=== PATIENT | male | born 1960 | race American Indian/Alaskan Native ===

== ENCOUNTER 2016-08-31 23:06 | Emergency (ER) | payer OTHER ==
[2016-08-31 23:07] VITALS: BMI 26.1
[2016-08-31 23:17] VITALS: BP 150/94; PULSE 90; RESP 14; TEMP 97.7; O2SAT 98
--- NOTE | 2016-08-31 23:37 | C.PDOC ---
History Of Present Illness 56 year old patient presents to the ED complaining of body aches, watery eyes and runny nose since yesterday. Patient notes he used a nasal spray with minimal relief. Patient notes he had similar symptoms last year. Patient denies fever, difficulty breathing, chest pain, nausea, vomiting, diarrhea. (-) incresae thirst or polyuria. Time Seen by Provider: 08/31/16 23:23 Chief Complaint (Nursing): Flu-like Symptoms History Per: Patient History/Exam Limitations: no limitations Onset/Duration Of Symptoms: Days (yesterday) Current Symptoms Are (Timing): Still Present Location Of Pain: Other (body aches) Sick Contacts (Context): None Severity: Mild Pain Scale Rating Of: 3 Recent travel outside of the [place]: No Past Medical History Reviewed: Historical Data, Nursing Documentation, Vital Signs Vital Signs: Last Vital Signs Temp 97.7 F 08/31/16 23:15 Pulse 90 08/31/16 23:15 Resp 14 08/31/16 23:15 BP 150/94 H 08/31/16 23:15 Pulse Ox 98 09/01/16 02:58 - Medical History PMH: HTN Family History: States: Unknown Family Hx - Social History Hx Tobacco Use: No Hx Alcohol Use: No Hx Substance Use: No - Immunization History Hx Tetanus Toxoid Vaccination: No Hx Influenza Vaccination: No Hx Pneumococcal Vaccination: No Review Of Systems Except As Marked, All Systems Reviewed And Found Negative. Constitutional: Positive for: Other (body aches). Negative for: Fever ENT: Positive for: Nose Discharge Cardiovascular: Negative for: Chest Pain Respiratory: Negative for: Shortness of Breath Gastrointestinal: Negative for: Nausea, Vomiting, Diarrhea Physical Exam - Physical Exam Appears: Non-toxic, No Acute Distress Skin: Warm, Dry Head: Atraumatic, Normacephalic Eye(s): bilateral: Normal Inspection, PERRL, EOMI Ear(s): Bilateral: Normal Nose: No Septal Hematoma, Other (nasal congestion with some swelling of the turbinates) Oral Mucosa: Moist Throat: Normal, No Erythema, No Exudate Neck: Normal ROM, Supple Lymphatic: Normal Exam Chest: Symmetrical Cardiovascular: Rhythm Regular Respiratory: Normal Breath Sounds, No Accessory Muscle Use, No Rales, No Rhonchi , No Wheezing Gastrointestinal/Abdominal: Soft, No Tenderness Back: Normal Inspection Extremity: Normal ROM Neurological/Psych: Oriented x3 Gait: Steady ED Course And Treatment O2 Sat by Pulse Oximetry: 98 (room air) Pulse Ox Interpretation: Normal Progress Note: Patient is resting comfortably, and is in no acute distress. Patient was instructed to follow up with physician/clinic for further evaluation. Return if symptoms worsen. Disposition - Disposition Disposition: HOME/ ROUTINE Disposition Time: 23:35 Condition: STABLE Additional Instructions: Follow up with primary medical doctor in 1-3 days without fail for further evaluation. Take medications as prescribed. Return to the emergency department at any time if symptoms persist or worsen. 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 - Scribe Statement The provider has reviewed the documentation as recorded by the Scribe Saida Owens All medical record entries made by the Scribe were at my direction and personally dictated by me. I have reviewed the chart and agree that the record accurately reflects my personal performance of the history, physical exam, medical decision making, and the department course for this patient. I have also personally directed, reviewed, and agree with the discharge instructions and disposition.
== END 2016-08-31 23:55 | disposition home or self-care (01) ==
LOC: C.ER 23:06
DX: B34.9 Viral infection, unspecified (principal)

== ENCOUNTER 2016-10-19 | Emergency (ER) | payer OTHER ==
[2016-10-19 00:01] VITALS: BMI 26.1
[2016-10-19 00:07] VITALS: PULSE 70; RESP 20; TEMP 97.9; O2SAT 100
[2016-10-19] MEDS ORDERED: Naproxen 550 mg Tab PO ONE (00:28)
--- NOTE | 2016-10-19 00:28 | C.PDOC ---
History Of Present Illness 56 year old male who presents to the ER with a complaint of lower back pain. 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 Patient states he twisted his back while attempting to break the fall; he notes taking naproxen at home with minimal relief and has recurring pain with movement. Denies weakness, numbness, or incontinence. Time Seen by Provider: 10/19/16 00:21 Chief Complaint (Nursing): Back Pain History Per: Patient History/Exam Limitations: no limitations Onset/Duration Of Symptoms: Days (7) Current Symptoms Are (Timing): Still Present Quality Of Discomfort: Unable To Describe Previous Symptoms: None Associated Symptoms: None. denies: Incontinence, New Weakness, New Numbness Exacerbating Factor(s): Movement Recent travel outside of the [place]: No Past Medical History Reviewed: Historical Data, Nursing Documentation, Vital Signs Vital Signs: Last Vital Signs Temp 97.9 F 10/19/16 00:04 Pulse 70 10/19/16 00:04 Resp 20 10/19/16 00:04 BP 150/80 10/19/16 00:31 Pulse Ox 100 10/19/16 03:04 - Medical History PMH: HTN Surgical History: No Surg Hx Family History: States: Unknown Family Hx - Social History Hx Tobacco Use: No Hx Alcohol Use: No Hx Substance Use: No - Immunization History Hx Tetanus Toxoid Vaccination: No Hx Influenza Vaccination: No Hx Pneumococcal Vaccination: No Review Of Systems Genitourinary: Negative for: Incontinence Musculoskeletal: Positive for: Back Pain Neurological: Negative for: Weakness, Numbness Physical Exam - Physical Exam Appears: Non-toxic Skin: Normal Color, Warm, Dry Head: Atraumatic, Normacephalic Oral Mucosa: Moist Back: No Vertebral Tenderness, Paraspinal Tenderness (Lumbar), Straight Leg Raising (Negative) Extremity: Normal ROM (x4), No Tenderness Neurological/Psych: Oriented x3, Normal Speech, Normal Cognition ED Course And Treatment O2 Sat by Pulse Oximetry: 100 (Room air) Pulse Ox Interpretation: Normal Progress Note: Naproxen administered. Patient is resting comfortably, is no longer having back pain, no fever, no bony tenderness, no numbness, no weakness , or abdominal pain. Patient is ambulatory in the emergency department with no signs of discomfort. Patient was advised to follow up with their physician in 1- 2 days. Disposition Counseled Patient/Family Regarding: Diagnosis, Need For Followup, Rx Given - Disposition Referrals: [facility] at [facility] [Outside] Disposition: HOME/ ROUTINE Disposition Time: 00:26 Condition: STABLE Additional Instructions: Take meds as directed Take flexeril at bedtime only Return to ER if worse Prescriptions: Cyclobenzaprine [Cyclobenzaprine HCl] 10 mg PO HS #10 tab Instructions: Muscle Strain (ED) - Clinical Impression Clinical Impression: Low back strain - Scribe Statement The provider has reviewed the documentation as recorded by the Scribderick Villagran All medical record entries made by the Hirenibderick were at my direction and personally dictated by me. I have reviewed the chart and agree that the record accurately reflects my personal performance of the history, physical exam, medical decision making, and the department course for this patient. I have also personally directed, reviewed, and agree with the discharge instructions and disposition.
[2016-10-19] MEDS ORDERED: Naproxen 550 mg Tab PO STA (00:29)
[2016-10-19 00:32] VITALS: BP 150/80
== END 2016-10-19 00:32 | disposition home or self-care (01) ==
LOC: C.ER
DX: S39.012A Strain of muscle, fascia and tendon of lower back, initial encounter (principal); W01.0XXA Fall on same level from slipping, tripping and stumbling without subsequent striking against object, initial encounter; Y92.239 Unspecified place in hospital as the place of occurrence of the external cause; Y99.0 Civilian activity done for income or pay

== ENCOUNTER 2017-03-09 16:55 | Emergency (ER) | payer OTHER ==
[2017-03-09 17:02] VITALS: BMI 25.0
[2017-03-09 17:04] VITALS: TEMP 98; O2SAT 100
[2017-03-09] MEDS ORDERED: Naproxen 550 mg Tab PO STA (17:57)
[2017-03-09] MEDS ORDERED: Amoxicillin-Clav 875-125 mg Tab PO STA (17:57)
[2017-03-09] MEDS ORDERED: Amoxicillin-Clav 875-125 mg Tab PO ONE (18:03)
[2017-03-09] MEDS ORDERED: Naproxen 550 mg Tab PO ONE (18:04)
--- NOTE | 2017-03-09 18:13 | C.PDOC ---
Time Seen by Provider: 03/09/17 17:26 Chief Complaint (Nursing): Headache History Per: Patient Onset/Duration Of Symptoms: Days (6), Waxing/Waning, Gradual Current Symptoms Are (Timing): Still Present Severity: Moderate Front/Back Head: 1 - pain Quality: "Pain" Associated Symptoms: denies: Photophobia, Blurred Vision, Nausea, Vomiting, Extremity Weakness Additional History Per: Prior Records Past Medical History Reviewed: Historical Data, Nursing Documentation, Vital Signs Vital Signs: Last Vital Signs Temp 98.0 F 03/09/17 17:02 Pulse 59 L 03/09/17 18:35 Resp 18 03/09/17 18:35 BP 159/86 H 03/09/17 18:35 Pulse Ox 100 03/09/17 18:35 - Medical History PMH: HTN (but not on any medication) Family History: States: Unknown Family Hx - Social History Hx Tobacco Use: No Hx Alcohol Use: No Hx Substance Use: No - Immunization History Hx Tetanus Toxoid Vaccination: No Hx Influenza Vaccination: No Hx Pneumococcal Vaccination: No Review Of Systems Except As Marked, All Systems Reviewed And Found Negative. Constitutional: Negative for: Fever, Weakness Eyes: Negative for: Vision Change, Eyelid Inflammation Cardiovascular: Negative for: Chest Pain Respiratory: Negative for: Shortness of Breath Gastrointestinal: Negative for: Nausea, Vomiting, Abdominal Pain Musculoskeletal: Negative for: Neck Pain Skin: Negative for: Rash Neurological: Positive for: Headache. Negative for: Weakness, Numbness, Incoordination, Change in Speech, Confusion, Seizures, Altered Mental Status, Dizziness Physical Exam - Physical Exam Appears: Non-toxic, No Acute Distress Skin: Normal Color, Warm, Dry, No Rash Head: Atraumatic, Normacephalic Eye(s): bilateral: Normal Inspection, PERRL, EOMI Ear(s): Bilateral: Normal Oral Mucosa: Moist, No Drooling, No Trismus Throat: Normal Neck: Normal ROM, Supple Lymphatic: No Adenopathy Cardiovascular: Rhythm Regular Respiratory: Normal Breath Sounds, No Accessory Muscle Use Gastrointestinal/Abdominal: Soft, No Tenderness Extremity: Normal ROM Neurological/Psych: Oriented x3, Normal Speech, Normal Cognition, Normal Cranial Nerves, No Cerebellar Signs, Normal Motor, Normal Sensation ED Course And Treatment O2 Sat by Pulse Oximetry: 100 Pulse Ox Interpretation: Normal Reassessment Condition: Improved Disposition Counseled Patient/Family Regarding: Studies Performed, Diagnosis, Need For Followup, Rx Given - Disposition Disposition: HOME/ ROUTINE Disposition Time: 18:37 Condition: STABLE Additional Instructions: Follow up with your doctor within 1 week for further evaluation and treatment. Return to the ER if you develop fever, vomiting, weakness, numbness, worsening of symptoms or if you have any other concerns. Prescriptions: Amoxicillin/Clavulanate [Augmentin 875 MG-125 MG] 1 tab PO BID #14 tab Fluticasone Nasal [Flonase] 2 spr NS DAILY #1 bottle hydroCHLOROthiazide [Microzide] 12.5 mg PO DAILY #30 cap Naproxen [Naprosyn] 1 tab PO BID PRN #20 tab PRN Reason: Pain Instructions: Sinusitis (ED), Hypertension (ED) Forms: [employer] (Venezuelan) - Clinical Impression Clinical Impression: Frontal headache, Sinusitis, Hypertension
[2017-03-09 18:36] VITALS: BP 159/86; PULSE 59; RESP 18
== END 2017-03-09 18:46 | disposition home or self-care (01) ==
LOC: C.ER 16:55
DX: R51 Headache (principal); J32.9 Chronic sinusitis, unspecified; I10 Essential (primary) hypertension

== ENCOUNTER 2017-08-10 06:02 | Emergency (ER) | payer OTHER ==
[2017-08-10 06:02] VITALS: BMI 25.0
[2017-08-10 06:15] VITALS: RESP 20
--- NOTE | 2017-08-10 06:25 | C.PDOC ---
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 Patient took some advil with some resolution of the headache, however, this morning the headache recurred. Patient is concerned his blood pressure might be elevated since he is noncompliant with medications and prefers to control his blood pressure with diet. Denies chest pain, SOB, neck pain, change in vision, dizziness, weakness Time Seen by Provider: 08/10/17 06:24 Chief Complaint (Nursing): Headache History Per: Patient History/Exam Limitations: no limitations Onset/Duration Of Symptoms: Hrs, Intermittent Episodes Current Symptoms Are (Timing): Still Present Preceeding Symptoms: None Associated Symptoms: denies: Photophobia, Blurred Vision, Nausea, Vomiting, Extremity Weakness Recent travel outside of the [place]: No Past Medical History Reviewed: Historical Data, Nursing Documentation, Vital Signs Vital Signs: Last Vital Signs Temp 98 F 08/10/17 06:10 Pulse 65 08/10/17 06:10 Resp 20 08/10/17 06:10 BP 149/82 08/10/17 06:49 Pulse Ox 98 08/10/17 06:51 - Medical History PMH: HTN (but not on any medication) Family History: States: Unknown Family Hx - Social History Hx Tobacco Use: No Hx Alcohol Use: Yes Hx Substance Use: No - Immunization History Hx Tetanus Toxoid Vaccination: No Hx Influenza Vaccination: No Hx Pneumococcal Vaccination: No Review Of Systems Eyes: Negative for: Vision Change Cardiovascular: Negative for: Chest Pain Respiratory: Negative for: Shortness of Breath Musculoskeletal: Negative for: Neck Pain Neurological: Positive for: Headache. Negative for: Dizziness Physical Exam - Physical Exam Appears: Non-toxic Skin: Normal Color, Warm, Dry Head: Atraumatic, Normacephalic Eye(s): bilateral: Normal Inspection, PERRL, EOMI Oral Mucosa: Moist Chest: Symmetrical, No Tenderness Cardiovascular: Rhythm Regular Respiratory: Normal Breath Sounds, No Rales, No Rhonchi, No Wheezing Neurological/Psych: Oriented x3, Normal Speech ED Course And Treatment O2 Sat by Pulse Oximetry: 98 (Room air) Pulse Ox Interpretation: Normal Progress Note: Patient's pain is now a 6/10, motrin PO given. Patient is hypertensive but otherwise stable. On reevaluation, patient is resting comfortably in the ER in no acute distress or pain, will discharge home with instructions to follow up with PMD or return if symptoms worsen. Patient understand and agrees with plan. 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 - Scribe Statement The provider has reviewed the documentation as recorded by the Scribderick Villagran All medical record entries made by the Hirenibderick were at my direction and personally dictated by me. I have reviewed the chart and agree that the record accurately reflects my personal performance of the history, physical exam, medical decision making, and the department course for this patient. I have also personally directed, reviewed, and agree with the discharge instructions and disposition.
[2017-08-10 07:15] VITALS: BP 149/52; PULSE 63; TEMP 98.4; O2SAT 100
== END 2017-08-10 07:19 | disposition home or self-care (01) ==
LOC: C.ER 06:02
DX: I10 Essential (primary) hypertension (principal); R51 Headache; Z91.14 Patient's other noncompliance with medication regimen

== ENCOUNTER 2018-01-11 19:20 | Emergency (ER) | payer BC, OTHER ==
[2018-01-11 19:21] VITALS: BMI 25.0
[2018-01-11 19:38] VITALS: BP 176/96; PULSE 75; RESP 16; TEMP 98.3; O2SAT 98
--- NOTE | 2018-01-11 20:18 | C.PDOC ---
History Of Present Illness 57 year old male presents to the ED complaining of frontal sinus pain/pressure and headache that began 4 days ago. Also notes lots of mucus and congestion. Otherwise he denies any fever, chills, or other complaints. Time Seen by Provider: 01/11/18 19:48 Chief Complaint (Nursing): ENT Problem History Per: Patient History/Exam Limitations: no limitations Onset/Duration Of Symptoms: Days Current Symptoms Are (Timing): Still Present Location Of Pain: Sinus/es Sick Contacts (Context): None Past Medical History Reviewed: Historical Data, Nursing Documentation, Vital Signs Vital Signs: Last Vital Signs Temp 98.3 F 01/11/18 19:31 Pulse 75 01/11/18 19:31 Resp 16 01/11/18 19:31 BP 176/96 H 01/11/18 19:31 Pulse Ox 98 01/11/18 19:31 - Medical History PMH: HTN (but not on any medication) Denies: Chronic Kidney Disease Family History: States: Unknown Family Hx - Social History Hx Tobacco Use: No Hx Alcohol Use: Yes Hx Substance Use: No - Immunization History Hx Tetanus Toxoid Vaccination: No Hx Influenza Vaccination: Yes Hx Pneumococcal Vaccination: No Review Of Systems Except As Marked, All Systems Reviewed And Found Negative. Constitutional: Negative for: Fever, Chills Eyes: Negative for: Vision Change ENT: Positive for: Nose Discharge, Nose Congestion, Other (Sinus pain/pressure) Respiratory: Negative for: Shortness of Breath, Wheezing Gastrointestinal: Negative for: Nausea, Vomiting Neurological: Positive for: Headache. Negative for: Dizziness Physical Exam - Physical Exam Appears: Well, Non-toxic, No Acute Distress Skin: Warm, Dry, No Rash Head: Normacephalic, Tenderness (on palpation to frontal sinus) Eye(s): bilateral: Normal Inspection, PERRL, EOMI Oral Mucosa: Moist Neck: Normal ROM Chest: Symmetrical Respiratory: No Accessory Muscle Use, Other (Speaking in full sentences) Extremity: Bilateral: Atraumatic, Normal Color And Temperature, Normal ROM Neurological/Psych: Oriented x3, Normal Speech Gait: Steady ED Course And Treatment O2 Sat by Pulse Oximetry: 98 (RA) Pulse Ox Interpretation: Normal Medical Decision Making Medical Decision Making: Impression: Sinusitis Initial Plan: Counseled patient regarding diagnosis and treatment plan. Patient remained afebrile alert and oriented with stable vital signs during ER evaluation. Patient feels comfortable going home and will be discharged. Provided with prescription for antibiotics. Patient given follow up instructions. Instructed to return to ER if symptoms worsen or new symptoms arise. Disposition Counseled Patient/Family Regarding: Diagnosis, Need For Followup, Rx Given - Disposition Referrals: [facility] [Outside] [facility] [Outside] Disposition: HOME/ ROUTINE Disposition Time: 20:18 Condition: STABLE Additional Instructions: May use cool mist humidifier or vaporizer in room. Try taking over the counter antihistamine (Claritin, Betsy, Zyrtec), Decongestant or Cough medicine (Mucinex). Follow up with your primary medical doctor or clinic in 1 week for further evaluation. 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 - Scribe Statement The provider has reviewed the documentation as recorded by the Scribe (Mira Beltran) All medical record entries made by the Scribe were at my direction and personally dictated by me. I have reviewed the chart and agree that the record accurately reflects my personal performance of the history, physical exam, medical decision making, and the department course for this patient. I have also personally directed, reviewed, and agree with the discharge instructions and disposition.
[2018-01-11] MEDS ORDERED: Amoxicillin-Clav 875-125 mg Tab PO ONE (20:33)
[2018-01-11] MEDS ORDERED: Amoxicillin-Clav 875-125 mg Tab PO STA (20:36)
== END 2018-01-11 20:38 | disposition home or self-care (01) ==
LOC: C.ER 19:20
DX: J32.9 Chronic sinusitis, unspecified (principal)

== ENCOUNTER 2018-04-22 04:11 | Emergency (ER) | payer OTHER ==
[2018-04-22 04:12] VITALS: BMI 25.0
[2018-04-22 04:24] VITALS: BP 150/82; PULSE 84; RESP 16; TEMP 97.1; O2SAT 98
--- NOTE | 2018-04-22 04:39 | C.PDOC ---
History Of Present Illness 58 y/o male presents to the ED complaining of flu-like symptoms since yesterday. Associated with subjective fever, chills, sore throat, and bodyaches. Otherwise patient denies any vomiting, diarrhea, cough, or SOB. Time Seen by Provider: 04/22/18 04:30 Chief Complaint (Nursing): Flu-like Symptoms History Per: Patient History/Exam Limitations: no limitations Onset/Duration Of Symptoms: Days (x 1) Current Symptoms Are (Timing): Still Present Location Of Pain: Throat, Diffuse Myalgias Sick Contacts (Context): None Past Medical History Reviewed: Historical Data, Nursing Documentation, Vital Signs Vital Signs: Last Vital Signs Temp 97.1 F L 04/22/18 04:15 Pulse 84 04/22/18 04:15 Resp 16 04/22/18 04:15 BP 150/82 04/22/18 04:15 Pulse Ox 98 04/22/18 04:15 - Medical History PMH: HTN (but not on any medication) Denies: Chronic Kidney Disease Family History: States: Unknown Family Hx - Social History Hx Tobacco Use: No Hx Alcohol Use: Yes Hx Substance Use: No - Immunization History Hx Tetanus Toxoid Vaccination: No Hx Influenza Vaccination: Yes Hx Pneumococcal Vaccination: No Review Of Systems Constitutional: Positive for: Fever, Chills, Other (Bodyaches) ENT: Positive for: Throat Pain Cardiovascular: Negative for: Chest Pain Respiratory: Negative for: Cough, Shortness of Breath, Wheezing Gastrointestinal: Negative for: Vomiting, Abdominal Pain, Diarrhea Skin: Negative for: Rash Neurological: Negative for: Weakness, Dizziness Physical Exam - Physical Exam Appears: Non-toxic, No Acute Distress Skin: Warm, Dry Head: Atraumatic, Normacephalic Eye(s): bilateral: Normal Inspection, PERRL, EOMI Nose: Normal Oral Mucosa: Moist Throat: Normal, No Erythema, No Exudate Neck: Normal ROM Chest: Symmetrical Cardiovascular: Rhythm Regular, No Murmur Respiratory: Normal Breath Sounds, No Rales, No Rhonchi, No Wheezing Gastrointestinal/Abdominal: Soft, No Tenderness, No Distention Extremity: Bilateral: Atraumatic, Normal Color And Temperature, Normal ROM Neurological/Psych: Oriented x3, Normal Speech ED Course And Treatment O2 Sat by Pulse Oximetry: 98 (RA) Pulse Ox Interpretation: Normal Progress Note: Counseled patient regarding likely dx of flu. Will treat patient empirically with tamiflu, first dose given in the ER. Patient is stable for discharge home, return precautions discussed. Disposition Counseled Patient/Family Regarding: Diagnosis - Disposition Referrals: [facility] at [facility] [Outside] Disposition Time: 04:36 Condition: STABLE Prescriptions: Oseltamivir Cap [Tamiflu] 75 mg PO BID #10 cap Instructions: Flu, Adult (DC), Viral Syndrome (DC) Forms: [employer] (Vincentian) - POA Present On Arrival: None - Clinical Impression Clinical Impression: Viral syndrome - Scribe Statement The provider has reviewed the documentation as recorded by the Jacqueline Beltran Provider Attestation: All medical record entries made by the Jacqueline were at my direction and personally dictated by me. I have reviewed the chart and agree that the record accurately reflects my personal performance of the history, physical exam, medical decision making, and the department course for this patient. I have also personally directed, reviewed, and agree with the discharge instructions and disposition.
== END 2018-04-22 04:46 | disposition home or self-care (01) ==
LOC: C.ER 04:11
DX: B34.9 Viral infection, unspecified (principal)